=== PATIENT | female | born 1945 ===

== ENCOUNTER → 2022-04-11 | Outpatient (CLI) | payer MEDICARE ==
--- NOTE | 2022-04-11 14:37 | RAD ---
EXAM: Head CT without contrast. HISTORY: Dizziness. Falls. Unsteady gait. TECHNIQUE: Computed tomographic images of the head were obtained without contrast. *One or more of the following individualized dose reduction techniques were utilized for this examina tion: 1. Automated exposure control. 2. Adjustment of the mA and/or kV according to patient size. 3. Use of iterative reconstruction technique. COMPARISON: 02/13/2016. FINDINGS: There is no acute or subacute extra-axial or intraparenchymal hemorrhage. There is no mass effect or midline shift. There is no hydrocephalus. There are cerebral white matter changes due to ch ronic small vessel disease. There is cerebral volume loss. There is stable encephalomalacia within the right frontal lobe likely due to chronic infarction. There is a small left choroid fissure cyst. There is a focus of encephalom alacia within the right cerebellum due to chronic infarction. There is evidence of lens surgery. The visualized paranasal sinuses mastoid air cells are unremarkabl e. There is no suspicious calvarial lesion. IMPRESSION: 1. No acute intracranial finding. Note is made that MRI is more sensitive for acute infarction. 2. Bilateral cerebral white changes, likely due to chronic small vessel disease. 3. 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 Electronically signed by: Stacia Love MD (04/11/2022 2:34 PM) [facility]
== END ==
LOC: CT 14:12
PROVIDERS: ATTEND Family Medicine
DX: R90.82 White matter disease, unspecified (principal); I63.9 Cerebral infarction, unspecified; G93.89 Other specified disorders of brain; G93.0 Cerebral cysts; R42 Dizziness and giddiness
CPT/HCPCS: 70450